=== PATIENT | female | born 1995 | race African-American/Black ===

== ENCOUNTER 2023-03-27 04:37 | Emergency (ER) | payer MEDICAID ==
[~2023-03-27] VITALS: Ht 154.9 cm; Wt 55.0 kg
[2023-03-27 04:41] VITALS: BP 94/69; PULSE 91; O2SAT 100
[2023-03-27] MEDS ORDERED: ACETAMINOPHEN 325MG TABLET PO ONE (05:30)
[2023-03-27 05:46] VITALS: TEMP 97.9
[2023-03-27] MEDS ORDERED: TOPUD PO (07:06)
== END 2023-03-27 08:16 | disposition home or self-care (01) ==
LOC: ER 04:37
DX: S90.31XA Contusion of right foot, initial encounter (principal); X58.XXXA Exposure to other specified factors, initial encounter; Y93.89 Activity, other specified; Y92.89 Other specified places as the place of occurrence of the external cause; Y99.8 Other external cause status
CPT/HCPCS: 81025; 73630; 99283; Z7610